=== PATIENT | female | born 1985 | race Asian ===

== ENCOUNTER 2016-07-09 20:27 | Emergency (ER) | payer OTHER ==
[2016-07-09] MEDS ORDERED: HYDROcodone/ACETAMIN 5-325 MG* 1 TAB PO ONE (22:02)
--- NOTE | 2016-07-09 22:35 | RAD ---
HISTORY: Fall,, trauma left shoulder COMPARISONS: None VIEWS: 4, Frontal internal rotation, external rotation, and outlet views of the left shoulder FINDINGS: BONE DENSITY: Normal. BONES: There is a comminuted and somewhat irregular to fracture of the surgical neck of the left humerus. JOINTS: There is a fluid level suggestive of lipohemarthrosis, with widening of the acromiohumeral interval ALIGNMENT: There is no dislocation. SOFT TISSUES: Unremarkable. OTHER FINDINGS: None. IMPRESSION: COMMINUTED FRACTURE OF THE PROXIMAL LEFT HUMERUS WITH LIPOHEMARTHROSIS
--- NOTE | 2016-07-09 22:37 | RAD ---
HISTORY: Trauma to left shoulder COMPARISONS: Left shoulder dated July 09, 2016 VIEWS: 2, Frontal and lateral views of the proximal left humerus. The left elbow is not included within the [id number] the current examination. FINDINGS: BONE DENSITY: Normal. BONES: Again noted is comminuted angular fracture of the proximal left humerus JOINTS: Again noted is widening of the acromiohumeral interval with lipohemarthrosis ALIGNMENT: There is no dislocation. SOFT TISSUES: Unremarkable. OTHER FINDINGS: None. IMPRESSION: AGAIN NOTED IS COMMINUTED ANGULATED FRACTURE OF THE PROXIMAL LEFT HUMERUS WITH LIPOHEMARTHROSIS
[2016-07-09] MEDS ORDERED: NS 0.9% 1000 ML* 1,000 ML IV ONE (23:37)
[2016-07-10 00:07] VITALS: BP 104/61
--- NOTE | 2016-08-30 12:37 | UC ---
Yfn Painter SooYoung, scribed for Luisa Burks MD on 07/09/16 at 2301 . Upper Extremity HPI - HPI Summary HPI Summary: A 31 y/o F presents to [facility] with c/o L shoulder pain onset today around approx 1630. Pt was snowboarding when she fell and landed on her L arm. No neck pain. No head pain. No vis / aud changes. No p/d. Able to move L hand. No chest pain, no sob. No fever. No n/v. No back pain. - History of Current Complaint Chief Complaint: UCUpperExtremity Stated Complaint: SHOULDER INJURY Hx Obtained From: Patient Hx Last Menstrual Period: END MAY Onset/Duration: Sudden Onset, Lasting Hours, Still Present Severity Currently: Severe Pain Intensity: 10 Pain Scale Used: 0-10 Numeric - Allergies/Home Medications Allergies/Adverse Reactions: Allergies Allergy/AdvReac Type Severity Reaction Status Date / Time No Known Allergies Allergy Verified 07/16/16 13:20 PMH/Surg Hx/FS Hx/Imm Hx Previously Healthy: Yes Neurological History Of: Denies: Dementia - Surgical History Surgical History: Yes Surgery Procedure, Year, and Place: EYE SURGERY - Social History Occupation: Student Alcohol Use: None Substance Use Type: None Smoking Status (MU): Never Smoked Tobacco Review of Systems Constitutional: Negative Skin: Negative Eyes: Negative ENT: Negative Respiratory: Negative Cardiovascular: Negative Gastrointestinal: Negative Genitourinary: Negative Motor: Decreased ROM Neurovascular: Negative Musculoskeletal: Arthralgia - Left prox humeral and ant lat shoulder tenderness. Distal R/U 2+ equal. + Ax n. sensation present. Distal hand x 5 digits + sensation. "ok" index and 5th intact L hand, Other: - LUE pain Neurological: Negative Psychological: Anxious - appropriately anxious All Other Systems Reviewed And Are Negative: Yes Physical Exam Triage Information Reviewed: Yes Vital Signs: Initial Vital Signs Temp 99.6 F 07/09/16 22:04 Pulse 79 07/09/16 22:04 Resp 18 07/09/16 22:04 BP 145/109 07/09/16 22:04 Pulse Ox 100 07/09/16 22:04 Vital Signs Reviewed: Yes Eye Exam: Normal ENT Exam: Normal Neck exam: Normal Neck: Positive: Supple, Nontender Respiratory Exam: Normal Cardiovascular Exam: Normal Abdominal Exam: Normal Musculoskeletal Exam: Other - Left shoulder and upper arm + tender. Distal sens to LT present. Ax n sens LT present R/ U pulse 2+. distal color good. Holding shoulder very still in temporarly splint. Psychological Exam: Normal - nonfocal - Additional Comments Appearance: Well-Nourished Eye Exam: Normal ENT Exam: Normal Neck exam: Normal, no adenopathy appreciated Respiratory Exam: Normal, no dyspnea, no tachypnea, normal respiratory rate Only if she checked: Chest non-tender, Lungs clear, Normal breath sounds, No respiratory distress, No accessory muscle use Cardiovascular Exam: Normal Cardiovascular: Heart rate regular, good general skin color, good capillary refill Only if she checked: RRR, No Murmur, Pulses Normal - sitting up. heart rate correlates w left radial pulse (if relevant), Brisk Capillary Refill Abdominal Exam: Normal Abdomen Description: Nontender, No organomegaly, Soft Bowel Sounds: Present Musculoskeletal Exam: Normal Musculoskeletal: Strength Intact Neurological Exam: Normal: nonfocal, grossly intact If full neuro exam completed, note following instead (NOT nonfocal, grossly intact): CN 1 - 12 intact, incl + sens alcohol swab. No diplopia. DTR's 2+ equal P / BR / R Moves all ext's. Distal sens LT present x 4 ext's Denies B/B issues. Gait steady Psychological Exam: Normal: conversing easily and appropriately Skin Exam: Normal: no visible or reported rash Diagnostics - Radiology L SHOULDER Xray Interpretation: Positive (See Comments) - IMPRESSION: COMMINUTED FRACTURE OF THE PROXIMAL L HUMERUS WITH LIPOHEMARTHROSIS. Radiology Interpretation Completed By: Radiologist HUMERUS L Xray Interpretation: Positive (See Comments) - IMPRESSION: AGAIN NOTED IS COMMINUTED FRACTURE OF THE PROXIMAL L HUMERUS WITH LIPOHEMARTHROSIS. Radiology Interpretation Completed By: Radiologist Upper Extremity Course/Dx - Course Course Of Treatment: Reviewed xray report w/ pt and child study team director. D/w Dr. Mullins. Pt was given norco 3/325, helped with pain. However, during the course of her stay, she became diaphoretic, improved with lying down. Agrees to go to ED. Will go via EMS. - Differential Dx/Diagnosis Provider Diagnoses: Comminuted humeral head fx (see report). Near syncope (c/w vasovagal event) - Physician Notification/Consults Discussed Patient Care With: 2258: Spoke to SHARON SHERIDAN, send pt to ED, evaluate and call him. 2330: Spoke to AD Franklin, send pt to ED Instructed by Provider To: MD Will See In ED - Send pt to ED Discharge - Discharge Plan Condition: Stable Disposition: TRANS HIGHER LVL OF CARE FAC Discharge Disposition Comment: transfer to [facility] Referrals: [facility] JOCELYN Armenta [Primary Care Provider] - The documentation as recorded by the Yfn slaughter SooYoung accurately reflects the service I personally performed and the decisions made by me, Luisa Burks MD.
== END 2016-07-10 00:05 | disposition short-term general hospital (02) ==
LOC: UCEAST 20:27
DX: S42.202A Unspecified fracture of upper end of left humerus, initial encounter for closed fracture (principal); W19.XXXA Unspecified fall, initial encounter; Y93.23 Activity, snow (alpine) (downhill) skiing, snowboarding, sledding, tobogganing and snow tubing; Y92.9 Unspecified place or not applicable; M25.012 Hemarthrosis, left shoulder; R55 Syncope and collapse
CPT/HCPCS: 99204; G0463

== ENCOUNTER 2016-07-10 00:31 | Emergency (ER) | payer OTHER ==
[2016-07-10] MEDS ORDERED: Morphine INJ* 4 MG/ML 1 ML CARPUJECT IV ONE (00:40)
[2016-07-10] MEDS ORDERED: HYDROcodone/ACETAMIN 5-325 MG* 1 TAB PO ONE (04:06)
--- NOTE | 2016-07-10 04:19 | ED ---
Upper Extremity Pain - HPI Summary HPI Summary: Patient was skiing and suffered a mechanical fall onto the ground, but directly on the L shoulder. Went to a walk in center, had Xray, whereupon the medical provider called the implementation manager orthopedist. She was transferred to the ED. No pain on arrival in sling. No other complaints. - History of Current Complaint Chief Complaint: EDExtremityUpper Stated Complaint: LT ARM FRACTURE Time Seen by Provider: 07/10/16 00:36 Hx Obtained From: Patient, Family/Plant Taxonomist, EMS Hx Last Menstrual Period: END MAY Mechanism Of Injury: Blunt Trauma Onset/Duration: Started Hours Ago Timing: Constant Severity Initially: Moderate Severity Currently: Mild Pain Location: Shoulder - Allergies/Home Medications Allergies/Adverse Reactions: Allergies Allergy/AdvReac Type Severity Reaction Status Date / Time No Known Allergies Allergy Verified 07/09/16 22:08 PMH/Surg Hx/FS Hx/Imm Hx Previously Healthy: Yes - Surgical History Surgery Procedure, Year, and Place: EYE SURGERY Infectious Disease History: No Infectious Disease History: Denies: Traveled Outside the [place] in Last 30 Days - Social History Alcohol Use: None Substance Use Type: Reports: None Smoking Status (MU): Never Smoked Tobacco Review of Systems Constitutional: Negative Cardiovascular: Negative Negative: Palpitations, Chest Pain Respiratory: Negative Negative: Shortness Of Breath Positive: Arthralgia, Decreased ROM Negative: Weakness, Paresthesia, Numbness All Other Systems Reviewed And Are Negative: Yes Physical Exam Triage Information Reviewed: Yes Vital Signs On Initial Exam: Initial Vitals Temp Pulse Resp BP Pulse Ox 98.9 F 71 16 112/80 100 07/10/16 00:35 07/10/16 00:35 07/10/16 00:35 07/10/16 00:35 07/10/16 00:35 Vital Signs Reviewed: Yes Appearance: Positive: Well-Appearing, No Pain Distress, Well-Nourished Skin: Positive: Warm, Skin Color Reflects Adequate Perfusion, Dry Head/Face: Positive: Normal Head/Face Inspection Eyes: Positive: Normal, EOMI, DION Neck: Positive: Supple Respiratory/Lung Sounds: Positive: Clear to Auscultation, Breath Sounds Present Cardiovascular: Positive: Normal, RRR, Pulses are Symmetrical in both Upper and Lower Extremities Abdomen Description: Positive: Nontender, No Organomegaly, Soft Musculoskeletal: Positive: Limited @, Pain @ - L proximal humerus TTP. No obvious step off., Other - SILT M/U/R bilateral. Strenght is 5/5 AIN/PIN/Ulnar bilateral. Cap refill is less than 2 seconds. Neurological: Positive: Normal, Sensory/Motor Intact, Alert, Oriented to Person Place, Time, CN Intact II-III, Reflexes Intact, Normal Gait. Negative: Cerebellar Dysfunction Diagnostics - Vital Signs Vital Signs Temp Pulse Resp BP Pulse Ox 07/10/16 02:00 83 124/79 98 07/10/16 01:59 85 116/74 98 07/10/16 01:00 83 109/70 100 07/10/16 00:40 81 89 07/10/16 00:38 108/73 07/10/16 00:35 98.9 F 71 16 112/80 100 - Laboratory Lab Statement: Any lab studies that have been ordered have been reviewed, and results considered in the medical decision making process. Course/Dx - Diagnoses Differential Diagnosis/HQI/PQRI: Positive: Fracture (Closed), Other - Primary concern for comminuted proximal humerus fracture. Pain free on exam while in sling. She had no complaints, deferred science interpreter, and understood the FU instructions. When her male friend arrived, he continued to ask how to make her pain free. I told him that I had already discussed the case with the implementation manager orthopedist, arranged FU, placed in sling as directed, arranged for analgesic on discharge, how to establish surgical care on Tuesday morning as directed by orthopedist. I spent 25 minutes discussing the sling, some minor fracture movement during the week-end, but FU needs. He was irritated and unpleasant, although she was without complaint and understood the FU. Provider Diagnoses: Humerus head fracture Discharge - Discharge Plan Condition: Improved Disposition: HOME Prescriptions: HYDROcodone/ACETAMIN 5-325 MG* [[place] 5-325 TAB*] 2 tab PO Q6H PRN #10 tab MDD 8 tablets PRN Reason: Pain Referrals: [facility] JOCELYN Armenta [Primary Care Provider] - Gavin Baltazar MD [Medical Doctor] - 2 Days
[2016-07-10 04:21] VITALS: BP 126/75
--- NOTE | 2016-07-10 09:05 | RAD ---
INDICATION: Left shoulder pain after snowboarding injury COMPARISON: Shoulder radiograph dated July 09, 2016 showing a minimally displaced and impacted fracture of the left humeral surgical neck. TECHNIQUE: Noncontrast CT examination of the left shoulder. Axial images were acquired and sagittal and coronal reformats were created and independently analyzed. FINDINGS: CT findings depict a minimally displaced and comminuted fracture at the left humeral surgical neck with a small amount of impaction of the shaft into the humeral head. The left humeral head maintains its articulation with the glenoid labrum. The remaining visualized bones are cortically intact and properly aligned. Depicted best on the axial view images (image 34 of 68) there is a large joint effusion exhibiting a fluid fluid level indicating hemorrhage into the capsule. IMPRESSION: Comminuted fracture at the left surgical humeral neck as described above.
== END 2016-07-10 04:20 | disposition home or self-care (01) ==
LOC: ED 00:31
DX: S42.292A Other displaced fracture of upper end of left humerus, initial encounter for closed fracture (principal); V00.311A Fall from snowboard, initial encounter; Y93.23 Activity, snow (alpine) (downhill) skiing, snowboarding, sledding, tobogganing and snow tubing; Y92.9 Unspecified place or not applicable
CPT/HCPCS: 96374; 99284

== ENCOUNTER 2016-07-16 12:49 | Day surgery (SDC) | payer OTHER ==
[~2016-07-16 12:49] MED LIST: Buffered Lidocaine 1% SYR 3ML* 3 ML/SYR SYRINGE INTRADERM ONE; Famotidine IV* 10 MG/ML 2 ML (20 mg) IV ONE
[2016-07-16] MEDS ORDERED: Famotidine IV* 10 MG/ML 2 ML (20 mg) ONE (13:05)
[2016-07-16] MEDS ORDERED: ceFAZolin 2 GM PREMIX (*) 2 GM/50 ML BAG IVPB ONE (13:05)
[2016-07-16 13:27] LABS: Manual Entry Verification HAN0055; UR Preg Internal Control QC Line Present
[2016-07-16] MEDS ORDERED: fentaNYL* 50 MCG/ML 2 ML VIAL (100 MCG VIAL) ONE ×6 (14:12→22:03)
[2016-07-16] MEDS ORDERED: ROPIVACAINE 5 MG/ML 30 ML BTL (0.5%) ONE (14:12)
[2016-07-16] MEDS ORDERED: Lidocaine 2% PF * 5 ML VIAL ONE (14:12)
[2016-07-16] MEDS ORDERED: Midazolam* 1 MG/ML 5 ML VIAL (5 MG) ONE ×2 (14:12→15:58)
[2016-07-16] MEDS ORDERED: Propofol* 10 MG/ML 20 ML BTL IV PUSH ONE (15:58)
[2016-07-16] MEDS ORDERED: Atracurium* 10 MG/ML 10 ML VIAL ONE (15:58)
[2016-07-16] MEDS ORDERED: Dexamethasone IV* 4 MG/ML 1 ML (4 MG) ONE (16:37)
[2016-07-16] MEDS ORDERED: Bupivacaine 0.5% W/EPI SDV* 30 ML VIAL ONE (20:21)
[2016-07-16] MEDS ORDERED: ceFAZolin 1 GM in Dextrose (*) 1 GM/50 ML BAG IVPB ONE (21:06)
[2016-07-16] MEDS ORDERED: Ondansetron INJ* 2 MG/ML VIAL ONE (21:06)
[2016-07-16] MEDS ORDERED: Ketorolac INJ* 30 MG/ML 1 ML VIAL ONE (21:08)
[2016-07-16] MEDS ORDERED: oxyCODONE TAB* 5 MG TAB PO PRN (21:52)
[2016-07-16] MEDS ORDERED: Ondansetron INJ* 2 MG/ML VIAL IV PRN (21:52)
[2016-07-16] MEDS ORDERED: HYDROmorphone INJ* 1 MG/ML CARPUJECT SYRINGE IV PRN (21:52)
[2016-07-16] MEDS ORDERED: DiMENhydriNATE IV* 50 MG/ML VIAL IV PUSH PRN (21:52)
[2016-07-16] MEDS ORDERED: HYDROcodone/ACETAMIN 5-325 MG* 1 TAB PO PRN (21:52)
[2016-07-16] MEDS: fentaNYL* 50 MCG/ML 2 ML VIAL (100 MCG VIAL) IV PRN ×2 (22:04→22:25)
[2016-07-16] MEDS ORDERED: oxyCODONE/Acetamin 5/325 MG* TAB ONE (22:21)
--- NOTE | 2016-07-16 22:43 | RAD ---
INDICATION: Traumatic fracture left humerus COMPARISON: Left humerus July 14, 2016 FINDINGS: 1 minute and 5.2 seconds of fluoroscopy were provided for the orthopedics department. Fluoroscopic spot imaging of the left shoulder were obtained for operative control and show open reduction internal fixation of the comminuted fracture of the humeral head and neck . CPT II Codes: 6045F (fluoro time doc)
--- NOTE | 2016-07-16 22:44 | RAD ---
INDICATION: ORIF traumatic left humeral fracture COMPARISON: Left shoulder July 14, 2016 TECHNIQUE: A single AP view is submitted obtained. FINDINGS: There is open reduction and internal fixation of the occipital humeral fracture. There is a cortical plate and multiple screws which bridge the fracture fragments which are now in good position and alignment. IMPRESSION: ORIF LEFT HUMERAL FRACTURE
[2016-07-16 22:59] VITALS: BP 148/88
--- NOTE | 2016-07-19 09:19 | OP ---
DATE OF OPERATION: 07/16/16 [facility] DATE OF : 89 SURGEON: Rocky Mullins MD SOLE BUFFER: MEGHAN Hills ANESTHESIOLOGIST: Dr. Wilfredo Ruiz. ANESTHESIA: General anesthesia. ANTIBIOSIS: Ancef 2 g IV given at the start of procedure, 1 g Ancef IV given at the conclusion of the procedure. PRE-OP DIAGNOSIS: Left proximal humerus fracture, displaced, four part. POST-OP DIAGNOSIS: Left proximal humerus fracture, displaced, four part. PROCEDURES: 1. Open reduction internal fixation of the left proximal humerus four part fracture, displaced. 2. Left open proximal biceps tenodesis. IV FLUIDS: See Anesthesia note. ESTIMATED BLOOD LOSS: 100 to 200 cc. COMPLICATIONS: None. SPECIMEN: None. IMPLANTS: Synthes proximal humerus locking plate. Two interfragmentary screws , each fully threaded at 3.5 mm. 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 The patient fell directly on to the left shoulder. She went to the [place]gent [place] [facility] and was then transferred to the emergency department at [facility]. Her pain was controlled and so she was sent home with a displaced fracture with the glenohumeral joint located by CT scan, which provided good characterization of the fracture. I saw the patient in clinic on 07/12/16. The patient was in a sling at that time. Neurovascularly intact distally. Her pain was controlled. Interestingly, her x- rays at that first clinic visit showed some improvement in her displacement compared with the injury films from her date of presentation to the emergency room. There was still a degree of pseudosubluxation present of the humeral head. In order to avoid operating unnecessarily especially given the hardware potential complications with this operation and risks with avascular necrosis, I decided to follow the patient during the week to see if the fracture reduction would continue to improve. Therefore, I converted the patient at that first clinic visit from a sling to a cuff and collar to let the weight of her humerus possibly reduce the fracture more. I then saw the patient a second time in clinic on 07/14/16. Unfortunately, her x-rays on this day showed worsened reduction. There was at least 6 mm of fracture line displacement and it appeared to be worsening. As well, the CT clearly showed anterior apex angulation of the fracture site that was difficult to picking crew supervisor fully on the extent of that deformity on x-ray. I discussed at length with the patient and her male policy checker the benefits, risks and complications of surgical procedure. I told them about a patient of mine in fellowship training who had a perfect surgical result as in the fracture reduction at the placement of fixation; however, that patient still went on to avascular necrosis of the humeral head, which presented with a humeral head fracture and the requirement to remove hardware and have a shoulder arthroplasty procedure. They were aware of the risk as well as aware of the benefits, chief among them being a more functional shoulder with the surgery, less painful with improved range of motion compared to nonoperative management. The patient opted for surgical management. DESCRIPTION OF PROCEDURE: Preoperative written consent. Operative extremity was marked in preoperative holding. The patient was taken back to the operating room and placed supine on the operating room table. The patient was sedated and then intubated. The table was turned into the beach chair position. Bumps were placed under the legs. The thighs and the chest were secured to the table. The torso was placed approximately 70 degrees of flexion compared to the lower body. The left upper extremity was prepped and draped. A spider arm extension was included in that prep and drape. Surgical time-out was performed. The bony landmarks were marked with a skin marking pen. A skin incision was made from the coracoid process to the skin overlying the anterior aspect of the humeral shaft just proximal to the level of the deltoid muscle insertion. This incision was continued through the superficial most subcutaneous tissue. Skin rakes were placed. Dissection was continued down through subcutaneous tissue with dissection scissors and hemostasis was obtained as needed with Bovie electrocautery. I encountered muscle fascia. I identified the deltopectoral interval by the cephalic vein. The cephalic vein was noted to be small. The cephalic vein actually was fully intact through the entire procedure and should be fully functional postoperatively. Using a light finger dissection, I dissected through the deltopectoral junction. The cephalic vein wanted to move laterally with the deltoid so I allowed it. The arm was fully abducted. With my index finger, I released subdeltoid adhesions, making sure not to go more than 2 to 3 cm distal to the lateral acromial edge to avoid any injury to the axillary nerve. I also swept my index finger subacromial to release adhesion there. I released the anterior most aspect of the coracoacromial ligament. Deltoid Kenyon retractor was placed under the deltoid. A finger Fisher was placed about the pec muscle, which was visualized. The arm was in a slightly flexed and abducted position. The clavipectoral fascia was identified and opened up just lateral to the conjoint tendon. The subscapularis tendon was well visualized. To improve exposure, the superior most aspect of the pectoralis tendon and latissimus tendon were released with Warner scissors. With rotation of the arm, the remainder of the rotator cuff was visualized. Pdmlbi-kz-[id number] traction stitches were placed with FiberWire #1 suture. Two were placed in the subscapularis tendon. Two were placed in the supraspinatus tendon and one was placed in the infraspinatus tendon. These allowed good manipulation of the humeral head. Before placing traction stitches, I had found the bicipital groove and the biceps tendon running in it. I retracted the biceps tendon immediately after freeing it up. I hoped to preserve the biceps tendon through the case. After placing the traction stitches, I visualized well the fracture site. The fracture was very comminuted, as advanced imaging had demonstrated preoperatively. It was a true a four-part fracture although all the parts went significantly displaced. There was a large fragment of a lesser tuberosity that had fractured although had not displaced significantly. The proximal most tip of the greater tuberosity seemed attached to the remainder of the humeral head although there was a segmental zone of greater tuberosity that a cortex head had clearly fractured off and wanted to displace. Then, there was the surgical neck fracture line. The intersection between the greater tuberosity and lesser tuberosity fragments was right in the bicipital groove. So, visible within the bicipital groove were these multiple fracture lines. The surgical neck fracture line certainly went through the bicipital groove as well. I inserted a Doddridge into the fracture lines and attempted to obtain reduction that way. I manipulated the head using traction stitches and manual manipulation. I obtained C- arm images and continued manipulation until a good reduction had been obtained. At this point, I placed temporary K-wires as provisional fixation. I placed three of these, one through the lesser tuberosity fragments anterior to posterior, one through the humeral shaft anterior to posterior aiming proximal into the humeral head fragments, and one more lateral through the greater tuberosity of the fracture fragment. C-arm imaging showed a good reduction. Therefore, I replaced the medial two K-wires with 3.5 mm screws running anterior to posterior. The more proximal screw is more directly entered posterior while the more distal screw there medially was started anterior but end posterior and proximal. I then tried out to fit both proximal humerus plates, the standard plate as well as the newer periarticular locking plate. The former plate fit better on this patient's humerus, which was quite small and less prominent in an arm that had very little subcutaneous tissue. I extended the incision a little bit distally to enable placement of plate. I placed the plate on bone and placed a 3.5 mm screw through the oval shaft hole. I adjusted the height slightly after placing that screw. I then, while putting a reducing force through the traction stitches, placed a non-locking 3.5 cancellous screw through the anterior superior most hole in the plate. This may have improved the reduction more. I then filled the proximal holes with non-locking 3.5 mm screws and most of the proximal holes we had the locking screws, six in total. Then included replacing the non-locking screw for a locking screw proximally. I was able to keep the anterior to posterior screws in place. I did not need to injure any blood supply placing those screws. The screw heads were nowhere near articular surface. Before I finished with the hardware, I took many C-arm images in multiple positions and shortened several of the screws, some of them from the plate. I also shortened the anterior to posterior screws so as to make most screws at least 6 mm short of the subchondral bone to avoid any potential future damage from settling of the bone. The wound was well irrigated throughout the procedure, so it would not dry up. C-arm imaging showed excellent reduction and excellent placement of fixation and all screws appropriate length. Irrigation. The traction stitches were then tied to the plate. It should be noted that after my provisional reduction had been placed, I recognized that given the multiple fracture lines through the bicipital groove that there would be multiple sharp edges on which the biceps tendon would get abraded. Therefore, I made the decision to release and tenodese the biceps tendon. Therefore, using a Warner scissors, I cut the biceps near its origin off the glenoid. I then at the start of closing after I placed all the hardware, I tenodesed the biceps to the pectoralis tendon near its insertion using two [id number]-[id number]-[id number] stitches using a FiberWire #1 suture. I closed the deltopectoral interval using a permanent covered 2.0 stitch, running stitch. I closed the subcutaneous tissue with buried simple stitches using Vicryl 3.0 suture. I closed the subcuticular layer with running stitch using Monocryl 4.0 suture. Mastisol , Steri-Strips, 4x4s, Tegaderm, sling. The patient was awakened, extubated and transferred to the PACU. As the case was extraordinarily long, the patient got a second dose of antibiotics near its conclusion. DISPOSITION: The patient was discharged home when medically stable and will follow up with me in 10 to 14 days postoperatively in clinic. Antibiotics, aspirin and Percocet and sling time motion analyst except for range of motion, elbow, wrist and fingers. [id number]/[facility] #: [id number] [facility] CENTERDorothy
== END 2016-07-16 23:30 | disposition home or self-care (01) ==
LOC: OR 12:49
PROVIDERS: ATTEND Orthopaedic Surgery
DX: S42.232A 3-part fracture of surgical neck of left humerus, initial encounter for closed fracture (principal); V00.328A Other snow-ski accident, initial encounter; Y93.23 Activity, snow (alpine) (downhill) skiing, snowboarding, sledding, tobogganing and snow tubing; Y92.838 Other recreation area as the place of occurrence of the external cause
CPT/HCPCS: 76001; 81025; A9270-GY; C1713; C1776; J0690; J1100; J1885; J2250; J2405; J2704; J2795; J3010